=== PATIENT | male | born 1970 | race Two or more races ===

== ENCOUNTER 2022-02-03 15:44 | Day surgery (SDC) | payer OTHER | END 2022-02-03 15:46 | disposition home or self-care (01) | LOC: AMB-ENDOS 15:44 | PROVIDERS: ATTEND Colon & Rectal Surgery | DX: C20 Malignant neoplasm of rectum (principal); Z85.048 Personal history of other malignant neoplasm of rectum, rectosigmoid junction, and anus; Z93.3 Colostomy status; K92.1 Melena; Z20.822 Contact with and (suspected) exposure to COVID-19; K64.0 First degree hemorrhoids ==

== ENCOUNTER 2022-05-21 11:00 | Inpatient (IN) | payer OTHER ==
[~2022-05-21] VITALS: Ht 172.7 cm; Wt 77.1 kg
== END 2022-05-28 11:02 | disposition home or self-care (01) | DRG 348 ==
LOC: SURG 05-25 07:00 → O/R 05-25 07:23 → SURG 05-25 11:00
PROVIDERS: ADMIT Colon & Rectal Surgery; ATTEND Colon & Rectal Surgery
PROC: 0DBB4ZZ Excision of Ileum, Percutaneous Endoscopic Approach (ICD-10-PCS; principal; 2022-05-25 07:00)
DX: Z43.2 Encounter for attention to ileostomy (principal); C20 Malignant neoplasm of rectum; K92.1 Melena; Z20.822 Contact with and (suspected) exposure to COVID-19

== ENCOUNTER 2023-05-02 14:51 | Emergency (ER) | payer OTHER ==
[~2023-05-02] VITALS: Ht 172.7 cm; Wt 59.0 kg
[2023-05-02] MEDS ORDERED: PERCOCET 5-3251 EACH PO (21:18)
[2023-05-02] MEDS ORDERED: DULCOLAX STOOL100 M1 PO (21:18)
== END 2023-05-02 21:39 | disposition home or self-care (01) ==
LOC: ER 14:51
DX: K60.3 Anal fistula (principal); K62.89 Other specified diseases of anus and rectum; R10.9 Unspecified abdominal pain; Z88.8 Allergy status to other drugs, medicaments and biological substances